=== PATIENT | female | born 1950 | race American Indian/Alaskan Native ===

== ENCOUNTER 2017-11-17 12:01 | Inpatient (IN) | payer MEDICARE ==
--- NOTE | 2017-11-17 12:33 | Emergency Department Report ---
ED Neuro Deficit HPI - General Chief Complaint: Neuro Symptoms/Deficit Stated Complaint: POSSIBLE STROKE Time Seen by Provider: 11/17/17 12:20 Source: patient Mode of arrival: Wheelchair Limitations: No Limitations - History of Present Illness Initial Comments: Woke up this morning feeling fine. At 5:30 AM, patient noticed that her left base was drooping and she was slobbering out the side of her mouth. This is never happened before. No numbness or weakness or vision changes experienced either. Patient came to the ER for evaluation. Symptoms improved but time she got to the ER. - Related Data Allergies/Adverse Reactions: Allergies Allergy/AdvReac Type Severity Reaction Status Date / Time No Known Allergies Allergy Unverified 11/17/17 12:08 ED Review of Systems ROS: Stated complaint: POSSIBLE STROKE Other details as noted in HPI Constitutional: denies: chills, fever Eyes: denies: eye pain, eye discharge, vision change ENT: denies: ear pain, throat pain Respiratory: denies: cough, shortness of breath, wheezing Cardiovascular: denies: chest pain, palpitations Endocrine: no symptoms reported Gastrointestinal: denies: abdominal pain, nausea, diarrhea Genitourinary: denies: urgency, dysuria, discharge Musculoskeletal: denies: back pain, joint swelling, arthralgia Skin: denies: rash, lesions Neurological: weakness. denies: headache, paresthesias Psychiatric: denies: anxiety, depression Hematological/Lymphatic: denies: easy bleeding, easy bruising ED Past Medical Hx - Past Medical History Hx Hypertension: Yes Hx Diabetes: Yes - Social History Smoking Status: Current Every Day Smoker Substance Use Type: None ED Neuro Physical Exam - General Limitations: No Limitations General appearance: alert, in no apparent distress Suspected Stroke: No - Head Head exam: Present: atraumatic, normocephalic - Eye Eye exam: Present: normal appearance - ENT ENT exam: Present: mucous membranes moist - Neck Neck exam: Present: normal inspection - Respiratory Respiratory exam: Present: normal lung sounds bilaterally. Absent: respiratory distress - Cardiovascular Cardiovascular Exam: Present: regular rate, normal rhythm. Absent: systolic murmur, diastolic murmur, rubs, gallop - GI/Abdominal GI/Abdominal exam: Present: soft. Absent: tenderness - Extremities Exam Extremities exam: Present: normal inspection - Back Exam Back exam: Present: normal inspection - Neurological Exam Neurological exam: Present: alert, oriented X3 - NIHSS Assessment Interval: Baseline 1a. Level of Consciousness: alert 1b. LOC Questions: answers correctly 1c. LOC Commands: performs tasks correctly 2. Best Gaze: normal 3. Visual: no visual loss 4. Facial Palsy: normal symmetrical movement 5b. Motor Arm Right: no drift 5a. Motor Arm Left: no drift 6a. Motor Leg Left: no drift 6b. Motor Leg Right: no drift 7. Limb Ataxia: absent 8. Sensory: normal 9. Best Language: no aphasia 10. Dysarthria: normal 11. Extinction/Inattention: no abnormality Total Score: 0 Stroke Severity: No Stroke Symptoms - Psychiatric Psychiatric exam: Present: normal affect, normal mood - Skin Skin exam: Present: warm, dry, intact, normal color. Absent: rash ED Course Vital Signs 11/17/17 11/17/17 11/17/17 12:06 12:08 12:34 Temperature 98.7 F 98.7 F Pulse Rate 88 91 H 82 Respiratory 18 16 Rate Blood Pressure 138/72 Blood Pressure 138/72 [Left] O2 Sat by Pulse 95 95 Oximetry 11/17/17 12:36 Temperature Pulse Rate Respiratory 20 Rate Blood Pressure Blood Pressure [Left] O2 Sat by Pulse 99 Oximetry - Lab Data Result diagrams: 11/17/17 12:28 11/17/17 12:30 Lab Results 11/17/17 11/17/17 11/17/17 Range/Units 12:08 12:28 12:28 WBC 13.6 H (4.5-11.0) K/mm3 RBC 4.24 (3.65-5.03) M/mm3 Hgb 13.0 (10.1-14.3) gm/dl Hct 38.9 (30.3-42.9) % MCV 92 (79-97) fl MCH 32 (28-32) pg MCHC 34 (30-34) % RDW 13.3 (13.2-15.2) % Plt Count 354 (140-440) K/mm3 Lymph % (Auto) 26.8 (13.4-35.0) % [place] % (Auto) 6.2 (0.0-7.3) % Eos % (Auto) 1.6 (0.0-4.3) % Baso % (Auto) 0.7 (0.0-1.8) % Lymph # 3.6 (1.2-5.4) K/mm3 [place] # 0.8 (0.0-0.8) K/mm3 Eos # 0.2 (0.0-0.4) K/mm3 Baso # 0.1 (0.0-0.1) K/mm3 Seg Neutrophils % 64.7 (40.0-70.0) % Seg Neutrophils # 8.8 H (1.8-7.7) K/mm3 PT 11.9 L (12.2-14.9) Sec. INR 0.84 L (0.87-1.13) APTT 25.4 (24.2-36.6) Sec. Thrombin Time (15.1-19.6) Sec. Sodium (137-145) mmol/L Potassium (3.6-5.0) mmol/L Chloride (98-107) mmol/L Carbon Dioxide (22-30) mmol/L Anion Gap mmol/L BUN (7-17) mg/dL Creatinine (0.7-1.2) mg/dL Estimated GFR ml/min BUN/Creatinine Ratio % Glucose (65-100) mg/dL POC Glucose 111 H (70-105) Calcium (8.4-10.2) mg/dL Troponin T (0.00-0.029) ng/mL 11/17/17 11/17/17 Range/Units 12:30 12:30 WBC (4.5-11.0) K/mm3 RBC (3.65-5.03) M/mm3 Hgb (10.1-14.3) gm/dl Hct (30.3-42.9) % MCV (79-97) fl MCH (28-32) pg MCHC (30-34) % RDW (13.2-15.2) % Plt Count (140-440) K/mm3 Lymph % (Auto) (13.4-35.0) % [place] % (Auto) (0.0-7.3) % Eos % (Auto) (0.0-4.3) % Baso % (Auto) (0.0-1.8) % Lymph # (1.2-5.4) K/mm3 [place] # (0.0-0.8) K/mm3 Eos # (0.0-0.4) K/mm3 Baso # (0.0-0.1) K/mm3 Seg Neutrophils % (40.0-70.0) % Seg Neutrophils # (1.8-7.7) K/mm3 PT (12.2-14.9) Sec. INR (0.87-1.13) APTT (24.2-36.6) Sec. Thrombin Time 15.4 (15.1-19.6) Sec. Sodium 136 L (137-145) mmol/L Potassium 3.9 (3.6-5.0) mmol/L Chloride 97.4 L (98-107) mmol/L Carbon Dioxide 24 (22-30) mmol/L Anion Gap 19 mmol/L BUN 26 H (7-17) mg/dL Creatinine 0.9 (0.7-1.2) mg/dL Estimated GFR > 60 ml/min BUN/Creatinine Ratio 29 % Glucose 115 H (65-100) mg/dL POC Glucose (70-105) Calcium 10.1 (8.4-10.2) mg/dL Troponin T < 0.010 (0.00-0.029) ng/mL - EKG Data -: EKG Interpreted by Me EKG shows normal: sinus rhythm, axis, intervals, QRS complexes, ST-T waves Rate: normal - Radiology Data Radiology results: report reviewed - Medical Decision Making 67-year-old female with history of hypertension, diabetes and presents to the ER with history of left facial droop, resolved on presentation. Patient has no focal deficits in the ER. Vitals are stable. Well-appearing. Lab work significant for leukocytosis of 13 and prerenal azotemia likely due to dehydration. CT head was unremarkable. I am concerned the patient had a TIA event. She will be admitted for further evaluation. EKG is nonischemic. - Differential Diagnosis tia Critical care attestation.: If time is entered above; I have spent that time in minutes in the direct care of this critically ill patient, excluding procedure time. ED Disposition Clinical Impression: TIA (transient ischemic attack), Dehydration Disposition: OP ADMIT IP TO THIS HOSP Is pt being admited?: Yes Condition: Stable
[2017-11-17 12:35] LABS: Basophils # (Auto) 0.1 K/mm3 (0.0-0.1); Basophils % (Auto) 0.7 % (0.0-1.8); Eosinophils # (Auto) 0.2 K/mm3 (0.0-0.4); Eosinophils % (Auto) 1.6 % (0.0-4.3); Lymphocytes # (Auto) 3.6 K/mm3 (1.2-5.4); Lymphocytes % (Auto) 26.8 % (13.4-35.0); Monocytes # (Auto) 0.8 K/mm3 (0.0-0.8); Monocytes % (Auto) 6.2 % (0.0-7.3)
[2017-11-17 12:46] LABS: INR 0.84 (0.87-1.13)
[2017-11-17 12:47] LABS: Partial Thromboplastin Time 25.4 Sec. (24.2-36.6)
[2017-11-17 12:51] LABS: BUN/Creatinine Ratio 29; Blood Urea Nitrogen 26 mg/dL (7-17); Calcium 10.1 mg/dL (8.4-10.2); Hemolysis Index 12
[2017-11-17 12:53] LABS: Hematocrit 38.9 % (30.3-42.9); Mean Corpuscular HGB Conc 34 % (30-34); Mean Corpuscular Hemoglobin 32 pg (28-32); Mean Corpuscular Volume 92 fl (79-97); Platelet Count 354 K/mm3 (140-440); Red Blood Count 4.24 M/mm3 (3.65-5.03); Red Cell Distribution Width 13.3 % (13.2-15.2)
--- NOTE | 2017-11-17 13:11 | Cat Scan Report ---
FINAL REPORT EXAM: CT HEAD/BRAIN WO CON HISTORY: neuro deficits TECHNIQUE: CT of the head was performed without intravenous contrast. PRIORS: None. FINDINGS: The ventricles are normal in shape and position. The ventricles are nondilated. No intracranial hemorrhage, mass, mass effect, midline shift or evidence of acute ischemic infarct. The basilar cisterns are patent. The paranasal sinuses are clear. A small lipoma is present in the soft tissues posterior to the left occipital region. The calvarium is intact. The orbits are intact. The mastoid air cells are clear. IMPRESSION: No acute intracranial abnormality.
[2017-11-17] MEDS ORDERED: NACL 0.9% 1000 ML 1,000 ML IV ONE (13:13)
--- NOTE | 2017-11-17 13:49 | History and Physical Report ---
History of Present Illness Chief complaint: I cant talk right History of present illness: 67 YO Female with HTN, DM, Nicotine Dependence presents to ED for evaluation. Pt states that she was in her usual state of health at bedtime around 2100hrs. Upon waking around 0530 hrs the patient experienced left side facial drooping, slurred speech. Pt seen and evaluated in ED and found to have symptoms consistent with acute CVA. Pt found to be outside therapeutic window for TPA. Pt denies fever, chills, CP, Palpitations, NVD, Syncope, BRBPR, Trauma, headache , BRBPR, unintentional weigh loss, night sweats, prolonged travel/immobility, individual/family history of DVT/PE. Pt admitted to telemetry. Past History Past Medical History: diabetes, hypertension Past Surgical History: No surgical history, Other (reviewed) Social history: , smoking Family history: diabetes, hypertension Medications and Allergies Allergies Allergy/AdvReac Type Severity Reaction Status Date / Time No Known Allergies Allergy Unverified 11/17/17 12:08 Home Medications Medication Instructions Recorded Confirmed Last Taken Type Albuterol Sulfate [Ventolin HFA] 2 puff IH Q4H PRN 11/17/17 11/17/17 11/17/17 History Aspirin [Aspirin EC] 81 mg PO DAILY 11/17/17 11/17/17 11/17/17 History AtorvaSTATin [Lipitor] 20 mg PO QHS 11/17/17 11/17/17 11/17/17 History Losartan/Hydrochlorothiazide 1 each PO DAILY 11/17/17 11/17/17 11/17/17 History [Losartan-Hctz 100-25 mg Tab] Omeprazole 20 mg PO DAILY 11/17/17 11/17/17 11/17/17 History metFORMIN [Glucophage] 500 mg PO BID 11/17/17 11/17/17 11/17/17 History Active Meds: Active Medications Sodium Chloride (Nacl 0.9% 1000 Ml) 1,000 mls @ 999 mls/hr IV BOLUS ONE Stop: 11/17/17 14:13 Review of Systems Constitutional: no weight loss, no weight gain, no fever, no chills, no night sweats Ears, nose, mouth and throat: no ear pain, no ear discharge, no tinnitis, no decreased hearing, no nose pain, no nasal congestion, no nasal discharge Breasts: no change in shape, no swelling, no mass Cardiovascular: no chest pain, no orthopnea, no palpitations, no rapid/ irregular heart beat, no edema, no syncope, no lightheadedness Respiratory: no cough, no cough with sputum, no excessive sputum, no hemoptysis , no shortness of breath, no dyspnea on exertion Gastrointestinal: no abdominal pain, no nausea, no vomiting, no diarrhea, no constipation, no change in bowel habits Genitourinary Female: no pelvic pain, no flank pain, no menorrhagia, no dysuria , no urinary frequency, no urgency Rectal: no pain, no incontinence, no bleeding Musculoskeletal: no neck stiffness, no neck pain, no shooting arm pain, no arm numbness/tingling, no low back pain, no shooting leg pain, no leg numbness/ tingling, no redness of joints Integumentary: no rash, no pruritis, no redness, no sores, no wounds, no jaundice, no boils, no blisters Neurological: weakness, change in speech Psychiatric: no anxiety, no memory loss, no change in sleep habits, no sleep disturbances, no insomnia, no hypersomnia Endocrine: no cold intolerance, no heat intolerance, no polyphagia, no excessive thirst, no polydipsia, no polyuria, no nocturia Hematologic/Lymphatic: no easy bruising, no easy bleeding, no lymphadenopathy, no lymphedema Allergic/Immunologic: no urticaria, no allergic rhinitis, no wheezing, no persistent infections, no anaphylaxis, no angioedema Exam - Constitutional Vitals: Temp Pulse Resp BP Pulse Ox 98.7 F 82 20 138/72 99 11/17/17 12:08 11/17/17 12:34 11/17/17 12:36 11/17/17 12:08 11/17/17 12:36 General appearance: Present: mild distress - EENT Eyes: Present: PERRL ENT: hearing intact, clear oral mucosa - Neck Neck: Present: supple, normal ROM - Respiratory Respiratory effort: normal Respiratory: bilateral: CTA - Cardiovascular Heart Sounds: Present: S1 & S2. Absent: rub, click - Extremities Extremities: pulses symmetrical, No edema Peripheral Pulses: within normal limits - Abdominal General gastrointestinal: Present: soft, non-tender, non-distended, normal bowel sounds Female genitourinary: Present: normal - Integumentary Integumentary: Present: clear, warm, dry - Musculoskeletal Musculoskeletal: left sided weakness - Psychiatric Psychiatric: appropriate mood/affect, intact judgment & insight - Neurologic Neurologic: moves all extremities, no gait normal Results - Labs CBC & Chem 7: 11/17/17 12:28 11/17/17 12:30 Labs: Abnormal lab results 11/17/17 11/17/17 11/17/17 Range/Units 12:08 12:28 12:28 WBC 13.6 H (4.5-11.0) K/mm3 Seg Neutrophils # 8.8 H (1.8-7.7) K/mm3 PT 11.9 L (12.2-14.9) Sec. INR 0.84 L (0.87-1.13) Sodium (137-145) mmol/L Chloride (98-107) mmol/L BUN (7-17) mg/dL Glucose (65-100) mg/dL POC Glucose 111 H (70-105) 11/17/17 Range/Units 12:30 WBC (4.5-11.0) K/mm3 Seg Neutrophils # (1.8-7.7) K/mm3 PT (12.2-14.9) Sec. INR (0.87-1.13) Sodium 136 L (137-145) mmol/L Chloride 97.4 L (98-107) mmol/L BUN 26 H (7-17) mg/dL Glucose 115 H (65-100) mg/dL POC Glucose (70-105) Assessment and Plan - Patient Problems (1) CVA (cerebral vascular accident) Current Visit: Yes Status: Acute Qualifiers: Precerebral and cerebral artery: middle cerebral artery Laterality of affected vessel: right Plan to address problem: Stroke protocol: CT Hear, MRI Brain, MRA Brain, Echo, antiplatelet thrapy, lipid panel, PT/OT/Speech therapy, Echo, EEG, neuro checks, (2) HTN (hypertension) Current Visit: Yes Status: Acute Qualifiers: Hypertension type: essential hypertension Qualified Code(s): I10 - Essential (primary) hypertension Plan to address problem: monitor bp q shift, continue current therapy (3) Diabetes Current Visit: Yes Status: Acute Plan to address problem: consistent carbohydrate diet, insulin, accu check (4) SIRS (systemic inflammatory response syndrome) Current Visit: Yes Status: Acute Plan to address problem: IV antibiotic therapy, Chest X ray, urinalysis, repeat CBC in am (5) Nicotine dependence Current Visit: Yes Status: Acute Qualifiers: Substance use status: in withdrawal Plan to address problem: supportive care, (6) DVT prophylaxis Current Visit: Yes Status: Acute Plan to address problem: SCD to BLE while in bed
[2017-11-17] MEDS ORDERED: REGLAN PO PRN (13:50)
[2017-11-17] MEDS ORDERED: PROVENTIL IH PRN (13:50)
[2017-11-17] MEDS ORDERED: TYLENOL PO PRN (13:50)
[2017-11-17] MEDS ORDERED: DULCOLAX PR PRN (13:50)
[2017-11-17] MEDS ORDERED: ZOFRAN IV PRN (13:50)
[2017-11-17] MEDS ORDERED: MILK OF MAGNESIA PO PRN (13:50)
[2017-11-17] MEDS ORDERED: SODIUM CHLORIDE FLUSH SYRINGE 10 ML IV PRN (13:50)
[2017-11-17] MEDS ORDERED: PHENERGAN PR PRN (13:50)
[2017-11-17] MEDS ORDERED: ASPIRIN ONE (14:32)
--- NOTE | 2017-11-17 15:22 | XRay Report ---
AP CHEST: HISTORY: Dyspnea AP view of the chest demonstrates a normal mediastinal and cardiac contour with clear lungs and normal bony and soft tissue structures. IMPRESSION: No acute cardiopulmonary process identified.
[2017-11-17] MEDS ORDERED: ASPIRIN PO ONE (15:31)
[2017-11-17 16:10] LABS: Bacteria,Urine 1+ /HPF (Negative); Bilirubin,Urine NEG (Negative); Blood,Urine NEG (Negative); Color,Urine Yellow (Yellow); Urobilinogen,Urine < 2.0 mg/dL (<2.0)
--- NOTE | 2017-11-17 17:17 | Magnetic Resonance Report ---
FINAL REPORT EXAM: MR MRA/MRV HEAD WO CON HISTORY: stroke neuro deficits. TECHNIQUE: MRA of the brain was performed without intravenous contrast. PRIORS: None. FINDINGS: The left posterior communicating artery is either very small or absent. The remainder of the [place] anatomy is normal. No intracranial aneurysm or vessel occlusion. The anterior cerebral, middle cerebral and posterior cerebral arteries are patent. The distal vertebral and basilar arteries are patent. Anterior communicating artery is patent. The right posterior communicating artery is patent. IMPRESSION: No intracranial aneurysm or vessel occlusion.
--- NOTE | 2017-11-17 17:38 | Magnetic Resonance Report ---
FINAL REPORT EXAM: MR BRAIN WO CON HISTORY: stroke TECHNIQUE: Multiplanar, multisequence MRI of the brain was performed without intravenous contrast. PRIORS: None. FINDINGS: There is a focal area of restricted diffusion in the right temporal periventricular white matter. No mass effect or midline shift. No intracranial masses are seen. The intracranial flow voids are patent. The ventricles are normal in size, shape and position. The basilar cisterns are patent. There is diffuse cerebral volume loss. Mild scattered areas of T2 FLAIR hyperintensity are seen in the periventricular and subcortical white matter. There is a focal ovoid area of CSF signal in the anterior aspect of the left temporal lobe measuring 1.3 x 1.0 centimeters. Mucosal thickening of the right maxillary sinus is likely congestive or inflammatory. The orbits are intact. A lipoma is seen in the left occipital soft tissues. IMPRESSION: 1. Recent lacunar type infarct in the right temporal periventricular white matter. Findings were discussed with MARSHA Perez at 2:30 p.m. PST on 11/17/2017. 2. Ovoid cyst in the left temporal lobe may represent a prominent perivascular space versus neuroglial cyst. Neoplastic and infectious etiologies are felt less likely.
[2017-11-17] MEDS ORDERED: VANCOMYCIN VIAL IV ONE (20:17)
[2017-11-17] MEDS ORDERED: VANCOMYCIN 1,500 MG in NACL 0.9% 500 ML 500 ML IV NR (20:30)
[2017-11-17] MEDS ORDERED: VANCOMYCIN PHARMACY TO DOSE IV SCH (21:00)
[2017-11-17] MEDS: PLAVIX PO SCH (21:31)
[2017-11-17] MEDS: PEPCID PO SCH (21:31)
[2017-11-18 06:25] LABS: Chol/HDL Ratio 3.55 %
[2017-11-18] MEDS ORDERED: ASPIRIN PO SCH (10:00)
[2017-11-18] MEDS ORDERED: VANCOMYCIN/0.45 NS 1 GM/250 ML 1 GM/250 ML BAG IV SCH (10:00)
[2017-11-18] MEDS: PEPCID PO SCH (10:23)
[2017-11-18] MEDS: PLAVIX PO SCH (10:24)
[2017-11-18 11:40] VITALS: BP 125/62
--- NOTE | 2017-11-18 13:08 | Discharge Summary ---
Providers - Providers Date of Admission: 11/17/17 13:50 Attending physician: NAVEEN LUCAS MD 11/17/17 13:50 Occupational Therapy Evaluate and Treat [CONS] Routine Comment: Reason For Exam: Neuro deficits Physical Therapy Evaluation and Treat [CONS] Routine Comment: Reason For Exam: Neuro deficits 11/18/17 07:46 Consult to Physician [CONS] Routine Comment: Consulting Provider: HUMERA MISHRA Physician Instructions: Reason For Exam: CVA Primary care physician: DAVE HARRISON MD Hospitalization Condition: Stable Disposition: [id number]-06 HOME UNDER HOME [facility] Time spent for discharge: 35 MINS Exam - Constitutional Vitals: Temp Pulse Resp BP Pulse Ox 98.3 F 82 18 125/62 96 11/18/17 11:23 11/18/17 11:23 11/18/17 11:23 11/18/17 11:23 11/18/17 11:23 Plan Activity: advance as tolerated, fall precautions Diet: low cholesterol Special Instructions: record daily BP diary Follow up with: DAVE HARRISON MD [Primary Care Provider] - 7 Days Prescriptions: Aspirin [Aspirin TAB] 325 mg PO QDAY #30 tablet
--- NOTE | 2017-11-18 18:30 | Consultation ---
History of Present Illness Consult date: 11/18/17 Requesting physician: JOSE KING Reason for Consult: left facial numbness and drooling Chief complaint: left facial numbness and drooling History of present illness: This 67-year-old right-handed -[place] female, per Dr. King: "Upon waking around 0530 hrs... experienced left side facial drooping, slurred speech. Pt seen and evaluated in ED and found to have symptoms consistent with acute CVA. Pt found to be outside therapeutic window for TPA." She states this occurred between 5 and 5:30 AM yesterday with numbness at the left corner of the mouth and drooling which has since improved but still is present. No numbness in the arms and legs. LDL was 106. MRA is normal but MRI shows positive diffusion suggesting embolic infarct in the right internal capsule. There is an old left temporal anterior round lesion which could be a cyst but has a slightly positive rim on FLAIR. Duplex was normal and echo with bubbles was normal. She takes aspirin 81 mg, Lipitor 20 mg and metformin. Blood pressure at home as been 120/60. 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 denies: alcohol abuse (none), prescription drug abuse, IV drug use (never illicit drugs) Family history: diabetes (2 sisters), hypertension (2 sisters, sororal niece, son), stroke, other (negative for epilepsy) Medications and Allergies Allergies Allergy/AdvReac Type Severity Reaction Status Date / Time No Known Allergies Allergy Unverified 11/17/17 12:08 Home Medications Medication Instructions Recorded Confirmed Last Taken Type Albuterol Sulfate [Ventolin HFA] 2 puff IH Q4H PRN 11/17/17 11/17/17 11/17/17 History AtorvaSTATin [Lipitor] 20 mg PO QHS 11/17/17 11/17/17 11/17/17 History Losartan/Hydrochlorothiazide 1 each PO DAILY 11/17/17 11/17/17 11/17/17 History [Losartan-Hctz 100-25 mg Tab] Omeprazole 20 mg PO DAILY 11/17/17 11/17/17 11/17/17 History metFORMIN [Glucophage] 500 mg PO BID 11/17/17 11/17/17 11/17/17 History Aspirin [Aspirin TAB] 325 mg PO QDAY #30 tablet 11/18/17 Unknown Rx Review of Systems All systems: negative (headaches now, had migraines in the past. No dizziness. Some snoring but negative for apnea on testing. Takes a 30 minute nap but no dozing otherwise and not sleepy driving. Some short-term and remote memory problems for a few years.) Physical Examination - Vital Signs Vital Signs: Vital Signs Temp Pulse Resp BP Pulse Ox 98.7 F 88 18 138/72 95 11/17/17 12:06 11/17/17 12:06 11/17/17 12:06 11/17/17 12:06 11/17/17 12:06 - Physical Exam Narrative exam: General Appearance: well developed well nourished (per BMI) late 60s - [place] female in NAD, accompanied by her daughter and [id number]. HEENT: atraumatic, normocephalic; no bruits, 2+ Elva without soreness or induration or enlargement, sclerae nonicteric. Oropharynx pink and moist with excess mucus though says she passed swallow screening in the emergency room. Neck: supple, no bruits. Heart: no murmur or extra sounds. Extremities: no clubbing, cyanosis or edema. 2+ dorsalis pedis pulses bilaterally. Neurologic Exam: Mental Status: Awake, alert, oriented to November 16 instead of but knows the year, speech is mostly clear but occasionally slurred, names pen and point of pen, and abstracts well. Names President but not Business Continuity Specialist, serial 7's with one error, no right-left confusion, gets 0.5 of 3 objects at 3 minutes ( giving her half credit for parrot when the correct item was canary, spells WORLD backwards with one transposition. Cranial Nerves: whittington full on the left, no papilledema on the left, SVPs present in the left, large distorted pupil from old surgery on the right without reaction to light or accommodation but normal on the left, EOMs full without nystagmus or diplopia, facial sensation intact to pinprick and light touch, slightly downturned left corner of the mouth, Gallegos is midline, palate rises symmetrically to phonation and gags are positive, shoulder shrug is 5 X 2 , tongue protrudes to the left. Cerebellar: finger to nose dysmetric bilaterally without tremor, tandem is done with some scissoring. Sensory: intact to light touch, pinprick, and vibrations. Double simultaneous stimulation is intact. Motor Exam Upper Extremities: no drift or pronation, Mary intact. Pruner are 5 X 2, tone is normal. No atrophy or fasciculations are noted visually. Motor Exam Lower Extremities: walks well on heels and toes but did not have her hop due to stroke. Mary intact. Tone is normal. No atrophy or fasciculations are noted visually. Reflexes: Palmomental and jaw jerk are negative but snout is slightly positive. Triceps are trace to 1 right and 1+ left, biceps are trace to 1 right and 1 left and brachioradialis are trace bilaterally. Tio's is negative bilaterally. Knee jerks are 1+ and ankle jerks are 0 bilaterally even with reinforcement and without clonus. Toes are downgoing bilaterally to Babinski testing. - Assessment Assessment Interval: Baseline - Level of Consciousness 1a. Level of Consciousness: alert - LOC Questions 1b. LOC Questions: answers correctly - LOC Command 1c. LOC Commands: performs tasks correctly - Best Gaze 2. Best Gaze: normal - Visual 3. Visual: no visual loss - Facial Palsy 4. Facial Palsy: normal symmetrical movement - Motor Arm 5b. Motor Arm Right: no drift - Motor Leg 6a. Motor Leg Left: no drift - Limb Ataxia 7. Limb Ataxia: absent - Sensory 8. Sensory: normal - Best Language 9. Best Language: no aphasia - Dysarthria 10. Dysarthria: normal - Extinction and Inattention 11. Extinction/Inattention: no abnormality Results - Laboratory Findings CBC and BMP: 11/17/17 12:28 11/17/17 12:30 Abnormal Lab Findings: Abnormal Labs 11/17/17 11/17/17 11/17/17 12:08 12:28 12:28 WBC 13.6 H Seg Neutrophils # 8.8 H PT 11.9 L INR 0.84 L Sodium Chloride BUN Glucose POC Glucose 111 H Free T4 11/17/17 11/17/17 11/18/17 12:30 20:20 11:33 WBC Seg Neutrophils # PT INR Sodium 136 L Chloride 97.4 L BUN 26 H Glucose 115 H POC Glucose 173 H 164 H Free T4 11/18/17 12:34 WBC Seg Neutrophils # PT INR Sodium Chloride BUN Glucose POC Glucose Free T4 1.48 H Assessment and Plan Impression: 1. Embolic stroke 2. Hypertension 3. Hyperlipidemia 4. Tobacco use 5. Memory loss Plan: 1. Suggested she try nicotine gum or lozenges as outpatient since she did not tolerate patches in the past. I emphasized smoking is the most likely cause of her strokes. 2. Stopped the Plavix that it been ordered and simply increased the aspirin to 325 mg since she is not yet an aspirin failure. 3. I increased her atorvastatin to 40 mg to get her LDL below 100. 4. I ordered memory labs. She thinks she's been on a 500 g B12 tablet recently but this may been a 5000 g size though not currently on it. 5. I suggest as an outpatient a 30 day event recorder to look for paroxysmal atrial fibrillation. 6. She will be getting a formal Speech evaluation for swallowing. 45 minutes spent with this patient including review of 100s of MRI images, including the stroke which I showed her and her family. Thank you for an interesting consultation on this pleasant late 60s lady. Will sign off, call for any unusual lab results.
[2017-11-18] MEDS ORDERED: VITAMIN B-12 PO SCH (22:00)
--- NOTE | 2017-11-20 13:00 | Vascular Lab Report ---
CAROTID DUPLEX STUDY: RIGHT PSVEDV CCA [id number] CCA [id number] ICA [id number] ICA MID:[id number] ICA DIST:[id number] ECA: [id number] VERT: 44 11 LEFT PSVEDV CCA [id number] CCA DIST:[id number] ICA PROX:[id number] ICA MID:7824 ICA DIST:[id number] ECA: 698 VERT: 67 15 REASON FOR EXAM: Stroke. COMMENTS ON THE RIGHT: Doppler frequency analysis is consistent with 16 to 49 percent diameter reduction of the internal carotid artery. A moderate amount of calcified plaque is seen. The common carotid artery is patent. The external carotid artery is patent. The vertebral artery has antegrade flow. COMMENTS ON THE LEFT: Doppler frequency analysis is consistent with 16 to 49 percent diameter reduction of the internal carotid artery. A moderate amount of calcified plaque is seen. The common carotid artery is patent. The external carotid artery is patent. The vertebral artery has antegrade flow. IMPRESSION: Less than 50% diameter reduction in the internal carotid arteries bilaterally. However, calcified plaque is seen in the internal carotid arteries bilaterally. Consider CT angiography for further evaluation.
--- NOTE | 2017-11-20 15:48 | Electroencephalogram Report ---
Electroencephalogram EEG Date of exam: 11/18/17 Description: The waking background shows an appropriate organization with well-defined anterior posterior voltage and frequency gradients. Posteriorly, there is a well -developed alpha rhythm of [ ] Hz which is symmetrical and bilaterally reactive. Anteriorly, there is a pattern of lower voltage and slightly irregular theta and beta range frequencies. During drowsiness, there is attenuation of the background rhythms. The sleep background shows normal organization with well-formed sleep spindles and vertex waves which are synchronous and symmetrical. Throughout, the recording there are no epileptiform abnormalities, focal or lateralizing features, or significant interhemispheric findings. Interpretation: Preliminary EEG shows some slowing of background and brief sleep, no epileptiform activity.
== END 2017-11-18 16:30 | disposition home health service (06) | DRG 65 ==
LOC: ED 12:01 → 4A 13:50
PROVIDERS: ADMIT Internal Medicine; ATTEND Internal Medicine
DX: I63.40 Cerebral infarction due to embolism of unspecified cerebral artery (principal); R65.10 Systemic inflammatory response syndrome (SIRS) of non-infectious origin without acute organ dysfunction; E11.9 Type 2 diabetes mellitus without complications; F17.210 Nicotine dependence, cigarettes, uncomplicated; E86.0 Dehydration; Z82.49 Family history of ischemic heart disease and other diseases of the circulatory system; Z83.3 Family history of diabetes mellitus; Z79.82 Long term (current) use of aspirin; E78.5 Hyperlipidemia, unspecified; Z82.3 Family history of stroke; Z98.49 Cataract extraction status, unspecified eye; Z79.899 Other long term (current) drug therapy
CPT/HCPCS: 36415; 70450; 70544; 70551; 71045; 80048; 80061; 81001; 82607; 82962; 84425; 84439; 84443; 84484; 85025; 85610; 85670; 85730; 93005; 93010; 93306; 93880; 95819; 96360; J3370; J7030; J7040